=== PATIENT | male | born 1955 | race Caucasian/White ===

== ENCOUNTER 2017-09-16 06:49 | Inpatient (IN) | payer OTHER ==
[2017-09-16] MEDS ORDERED: fentaNYL 100 MCG/2 ML INJ IT ONE (07:04)
[2017-09-16] MEDS ORDERED: morphINE PF 5 MG/10 ML INJ IT ONE (07:04)
[2017-09-16] MEDS ORDERED: ceFAZolin 2 GM/SWFI 2 GM/20 ML SYR IVP ONE (07:04)
[2017-09-16] MEDS ORDERED: LR 1,000 ML IV ONE (07:05)
[2017-09-16] MEDS ORDERED: LIDOCAINE 1% 2 ML INJ ID PRN (07:24)
[2017-09-16 08:01] LABS: ANION GAP 12 mEq/L (8-16); CALCIUM 9.4 mg/dL (8.5-10.4); CARBON DIOXIDE 23 mEq/l (22-31); CHLORIDE 109 mEq/L (97-110); GLOMERULAR FILTRATION RATE > 60; GLUCOSE 102 mg/dL (70-100); POTASSIUM 4.5 mEq/L (3.5-5.2); SODIUM 144 mEq/L (134-144)
[2017-09-16] MEDS ORDERED: HYDROCODONE/APAP 5/325 TAB PO PRN ×2 (08:58→13:36)
[2017-09-16] MEDS ORDERED: ALBUTEROL 3 ML DEYVIAL IH PRN (08:58)
[2017-09-16] MEDS ORDERED: NALOXONE HCL 0.4 MG/ML INJ IVP PRN ×2 (08:58→13:36)
[2017-09-16] MEDS ORDERED: ONDANSETRON 4 MG/2 ML VIAL IVP PRN ×2 (08:58→13:36)
[2017-09-16] MEDS ORDERED: DEXAMETHASONE 4 MG/ML VIAL IVP PRN (08:58)
[2017-09-16] MEDS ORDERED: epHEDrine SULFATE 10 MG/ML SYR IVP PRN (08:58)
[2017-09-16] MEDS ORDERED: LR 500 ML IV PRN (08:58)
[2017-09-16] MEDS ORDERED: PROMETHAZINE HCL 25 MG/ML INJ IVP PRN (08:58)
[2017-09-16] MEDS ORDERED: ACETAMINOPHEN 500 MG TAB PO PRN (08:58)
[2017-09-16] MEDS ORDERED: SCOPOLAMINE HYDROBROMIDE 1 MG/3 DAYS PATCH TD SCH (09:00)
--- NOTE | 2017-09-16 09:00 | PDANEPAE ---
ANE History of Present Illness TLIF ANE Past Medical History - Cardiovascular History Hx Hypertension: No Hx Arrhythmias: No Hx Chest Pain: No Hx Coronary Artery / Peripheral Vascular Disease: No Hx CHF / Valvular Disease: No Hx Palpitations: No - Pulmonary History Hx COPD: No Hx Asthma/Reactive Airway Disease: No Hx Recent Upper Respiratory Infection: No Hx Oxygen in Use at Home: No Hx Sleep Apnea: No Sleep Apnea Screening Result - Last Documented: Negative - Neurologic History Hx Cerebrovascular Accident: No Hx Seizures: No Hx Dementia: No - Endocrine History Hx Diabetes: No - Renal History Hx Renal Disorders: Yes Renal History Comment: OVER ACTIVE BLADDER/FREQUENCY POST RADICAL PROSTATECTOMY 02/17 - Liver History Hx Hepatic Disorders: No - Neurological & Psychiatric Hx Hx Neurological and Psychiatric Disorders: No - Cancer History Hx Cancer: Yes Cancer History Comment: PROSTATE - Congenital Disorder History Hx Congenital Disorders: No - GI History Hx Gastrointestinal Disorders: No - Other Health History Other Health History: DJD. STENOSIS - Chronic Pain History Chronic Pain: Yes (RT HIP,THIGH,RUSS FEET) - Surgical History Prior Surgeries: RADICAL PROSTATECTOMY 02/2017 IN [place]. RT SHLDR SCOPE. RT KNEE SCOPE. RUSS ELBOW REPAIR. LUMBAR FUSION X3. LAMINECTOMY ANE Review of Systems Review of Systems: - Exercise capacity METS (RN): 4 METS ANE Patient History - Allergies Allergies/Adverse Reactions: No Known Allergies Allergy (Verified 01/17/15 07:20) - Home Medications Home Medications: Atorvastatin Calcium [Lipitor 40 mg (RX)] 40 mg PO HS 07/12/12 [Last Taken 09/15 21:00] Oxybutynin Chloride Xl [Ditropan Xl 5mg (*)] 10 mg PO DAILY@08/03/17 [Last Taken 09/07/17] Sildenafil Citrate [Revatio 20 MG (*)] 20 mg PO DAILY@08/03/17 [Last Taken ] - NPO status NPO Since - Liquids (Date): 09/15/17 NPO Since - Liquids (Time): 23:30 NPO Since - Solids (Date): 09/15/17 NPO Since - Solids (Time): 19:30 - Smoking Hx Smoking Status: Never smoked ANE Labs/Vital Signs - Labs Result Diagrams: 09/16/17 07:34 - Vital Signs Blood Pressure: 126/72 Heart Rate: 55 Respiratory Rate: 16 O2 Sat (%): 98 Height: 182.88 cm Weight: 88.451 kg ANE Physical Exam - Airway Neck exam: FROM Mallampati Score: Class 2 - Pulmonary Pulmonary: clear to auscultation - Cardiovascular Cardiovascular: regular rate and rhythym - ASA Status ASA Status: II ANE Anesthesia Plan Anesthesia Plan: general endotracheal anesthesia
[2017-09-16] MEDS ORDERED: BUPIVACAINE 0.25% 30 ML SDV ONE ×2 (09:17→09:35)
[2017-09-16] MEDS ORDERED: PROPOFOL/EMULSION 500 MG/50 ML BOTTLE IV ONE ×5 (09:17→13:11)
[2017-09-16] MEDS ORDERED: morphINE PF 5 MG/10 ML INJ ONE (09:17)
[2017-09-16] MEDS ORDERED: CITRATE DEXTROSE SOLN 500 ML BAG ONE (09:17)
[2017-09-16] MEDS ORDERED: THROMBIN (BOVINE) 5,000 UNIT VIAL TP ONE (09:17)
[2017-09-16] MEDS ORDERED: BACITRACIN 50,000 UNITS/10 ML SYR IRR ONE (09:18)
[2017-09-16] MEDS ORDERED: REMIFENTANIL HCL 1 MG VIAL ONE ×3 (09:18)
[2017-09-16] MEDS ORDERED: SUCCINYLCHOLINE CHLORIDE*ANESTHESIA ONLY*200 MG/10 ML SYR IVP ONE (09:18)
[2017-09-16] MEDS ORDERED: DEXAMETHASONE 4 MG/ML VIAL ONE ×2 (09:29)
[2017-09-16] MEDS ORDERED: RANITIDINE 50 MG/2 ML VIAL ONE (09:29)
[2017-09-16] MEDS ORDERED: ONDANSETRON 4 MG/2 ML VIAL ONE (09:29)
[2017-09-16] MEDS ORDERED: METOCLOPRAMIDE 10 MG/2 ML VIAL ONE (09:30)
[2017-09-16] MEDS ORDERED: HYDROmorphONE/DILAUDID 2 MG/ML INJ ONE (10:48)
[2017-09-16] MEDS ORDERED: fentaNYL 100 MCG/2 ML INJ ONE (12:49)
[2017-09-16] MEDS ORDERED: ceFAZolin 1 GM VIAL ONE (13:07)
[2017-09-16] MEDS ORDERED: BISACODYL 10 MG SUPP PR PRN (13:36)
[2017-09-16] MEDS ORDERED: LACTULOSE 20 GM/30 ML UDCUP PO PRN (13:36)
[2017-09-16] MEDS ORDERED: MAGNESIUM HYDROXIDE 30 ML UDCUP PO PRN (13:36)
[2017-09-16] MEDS ORDERED: ONDANSETRON DISINTEGRATING 4 MG TAB PO PRN (13:36)
[2017-09-16] MEDS ORDERED: METHOCARBAMOL 750 MG TAB PO PRN (13:36)
[2017-09-16] MEDS ORDERED: morphINE PCA 30 MG/30 ML PCA IV PRN (13:36)
[2017-09-16] MEDS ORDERED: diphenhydrAMINE 25 MG CAP PO PRN (13:36)
[2017-09-16] MEDS ORDERED: oxyCODONE IR 5 MG TAB PO PRN (13:36)
--- NOTE | 2017-09-16 13:41 | SOAPPROG ---
SOAP Progress Note Assessment/Plan: Assessment: 62 yo M sp L4-S1 hardware removal, L3-L5 fusion with L3/4 TLIF Plan: stable to 3N PT/OT LSO brace when out of bed please call with neuro changes 09/16/17 13:40 Subjective: + back pain, no leg pain Objective: Vital Signs Temp Pulse Resp BP Pulse Ox 36.6 C 55 L 16 126/72 H 98 09/16/17 09:22 09/16/17 09:22 09/16/17 09:22 09/16/17 09:22 09/16/17 09:22 Laboratory Results 09/16/17 07:34 somnolent PERRL, no facial droop MONO x 4 + light touch ICD10 Worksheet Patient Problems: Problems Problem Status Onset Fusion of spine of lumbar region Acute - ICD10 Problem Qualifiers (1) Fusion of spine of lumbar region
[2017-09-16] MEDS ORDERED: NS W/ 20 KCl/L 1,000 ML IV SCH (13:45)
[2017-09-16] MEDS ORDERED: HYDROmorphONE/DILAUDID 1 MG/ML INJ ONE (13:51)
[2017-09-16] MEDS: HYDROmorphONE/DILAUDID 1 MG/ML INJ IVP PRN ×3 (13:52→14:18)
[2017-09-16] MEDS ORDERED: MEPERIDINE 25 MG/ML SYR ONE (14:03)
[2017-09-16] MEDS ORDERED: MEPERIDINE 25 MG/ML SYR IVP PRN (14:08)
--- NOTE | 2017-09-16 14:21 | POSTANESTH ---
Post Anesthetic Evaluation Cardiovascular Status: Normal, Stable Respiratory Status: Normal, Stable Level of Consciousness/Mental Status: Can Participate in Eval, Alert and Oriented Pain Control: Adequate, Prn Tx Ordered Nausea/Vomiting Control: Adequate, Prn Tx Ordered Complications Possibly Related to Anesthesia: None Noted
[2017-09-16] MEDS: ceFAZolin 2 GM/DEXTROSE 100 ML IV SCH (18:16)
[2017-09-16] MEDS: POLYETHYLENE GLYCOL 3350 17 GM PKT PO SCH ×2 (18:16→21:16)
[2017-09-16] MEDS ORDERED: ATORVASTATIN CALCIUM 40 MG TAB PO SCH (21:00)
[2017-09-16] MEDS ORDERED: morphINE SR 15 MG TAB PO SCH (21:00)
[2017-09-16] MEDS: FAMOTIDINE 20 MG TAB PO SCH (21:16)
[2017-09-16] MEDS: SENNOSIDES/DOCUSATE SODIUM TAB PO SCH (21:16)
[2017-09-16] MEDS: morphINE SR 30 MG TAB PO SCH (21:17)
--- NOTE | 2017-09-17 01:05 | GOP ---
[f rep st] OPERATIVE REPORT DATE OF OPERATION: 09/16/2017 SURGEON: Donta Ac MD ANESTHESIA: General endotracheal. PREOPERATIVE DIAGNOSIS: 1. Severe adjacent level degeneration and critical spinal stenosis at L3-4, status post prior L4-S1 decompression and stabilization with instrumentation. Intractable back pain. 2. Intractable right greater than left lower extremity radicular and neurogenic claudication symptom s. 3. Failed conservative care. POSTOPERATIVE DIAGNOSIS: 1. Severe adjacent level degeneration and critical spinal stenosis at L3-4, status post prior L4-S1 decompression and stabilization with instrumentation. Intractable back pain. 2. Intractable right greater than left lower extremity radicular and neurogenic claudication symptom s. 3. Failed conservative care. PROCEDURE PERFORMED: 1. Removal of posterior segmental (pedicle screw) fixation from L4-S1 with exploration of spinal fus ion at L5-S1 and re-instrumentation at L3 through L5 with posterior segmental (pedicle screw) fixatio n. 2. Right-sided L3-4 far lateral transpedicular decompression with redo right L4-5 posterior hemilami nectomy and medial facetectomy and foraminotomy. 3. L3-4 posterior/transforaminal lumbar interbody fusion with 2 structural PEEK interbody spacers, l ocal autograft and bone morphogenic protein. 4. Use of intraoperative microscopy, fluoroscopy and computer volumetric stereotactic navigation wit h intraoperative neurophysiologic testing. 5. Injection of intrathecal narcotic analgesics and subcutaneous and intramuscular local anesthesia for postoperative pain control. 6. FINDINGS: ESTIMATED BLOOD LOSS: 250 cc. DESCRIPTION OF PROCEDURE: After informed consent was obtained, the patient was taken to the operatin g room and placed in the prone position on the Tomi table. The lumbosacral area was prepped and d raped in a sterile fashion. After fluoroscopic localization of the correct levels, the subcutaneous and intramuscular tissues were infiltrated with local anesthesia. A midline linear incision was then created from approximately L3 through S1. This was carried down to the fascial layer, which was inc ised using monopolar electrocautery and carried in a subperiosteal plane along the spinous processes and lamina bilaterally at the L3 level. The L4-S1 levels had laminectomy defects and this required m eticulous dissection under high-power microscopy and very careful exposure of the prior instrumentati on that was carefully removed in standard fashion. Following this, the microscope was brought in and a right-sided far lateral transpedicular decompression was performed at the L3-4 level with complete unroofing of the facet joint and neuro foramen. A right-sided redo posterior hemilaminectomy and fo raminotomy and medial facetectomy was performed on the right at the L4-5 level in order to ensure steffi quate decompression. Following this, the wound was copiously irrigated with antibiotic irrigation. Meticulous hemostasis was achieved. The Omnistream neuronavigational system was then brought in and 3-D reconstructed images utilized in conjunction with the navigation to place screws at L3, L4, and L5 b ilaterally. The L5 screws were added because I felt 2 points of fixation would be good in this patie nt under the circumstances. Following this, rods were placed across the L3-4 level only under distra ction, during which time, a complete diskectomy was performed at the L3-4 level with preparation of t he endplates and placement of two 11 mm structural PEEK interbody spacers, local autograft and bone m orphogenic protein for an L3-4 posterior/transforaminal lumbar interbody fusion. The screw and rods were then removed, and longer rods placed from L3 to L5 with maximal lordosis in order to prevent fla t back syndrome. A slight amount of compression was created across the L3-4 interspace in order to f acilitate bony union and to minimize the potential for posterior graft migration. Note that a couple of the screws stimulated very low with the intraoperative neurophysiologic testing and I tested the monitoring thresholds on the lamina, and these were also extremely low in multiple locations and I am not exactly sure why he was getting such low signals. But using biplanar fluoroscopy, I was able to verify good position of the screws and interbody spacers and had locked everything in place. Follow ing this, the wound was copiously irrigated with antibiotic irrigation. Meticulous hemostasis was ac hieved. 200 mcg of Duramorph along with 50 mcg of fentanyl were injected intrathecally for postopera tive pain control. The remaining lamina and facet joints were extensively decorticated, and the resi dual local autograft along with bone morphogenic protein and morselized allograft was placed out late rally for post posterolateral fusion from L3-L5. A drain was placed. The subcutaneous and intramusc ular tissues were re-infiltrated with local anesthesia. The wound was closed in a layered fashion us ing interrupted Vicryl sutures followed by Steri-Strips on the skin. COMPLICATIONS: None. INDICATIONS FOR PROCEDURE: The patient is a 62-year-old man who had a prior multilevel lumbar decomp ression stabilization at the L4 through S1 levels who had done extremely well for many years after th e surgery in 2006, but more recently has developed progressively worsening low back pain radiating es pecially into the right lower extremity and minimally into the left lower extremity. This is associa amada with neurogenic claudication and extremely poor quality of life. He presents now for removal of the old instrumentation and exploration of spinal fusion and extension of the decompression and fusio n up to L3-4. DISPOSITION: The patient was extubated and transferred to the recovery room in stable condition jacoby alfaro. /[id number]/MODL
[2017-09-17] MEDS: ceFAZolin 2 GM/DEXTROSE 100 ML IV SCH (03:33)
[2017-09-17 04:51] LABS: % IMMATURE GRANULYOCYTES 0.4 % (0.0-1.1); ABSOLUTE IMMATURE GRANULOCYTES 0.05 10^3/uL (0.00-0.10); ADD DIFF? NO; ADD MORPH? NO; ADD SCAN? NO; ATYPICAL LYMPHOCYTE FLAG 0 (0-99); FRAGMENT RBC FLAG 0 (0-99); HEMATOCRIT 36.4 % (40.0-51.0); HEMOGLOBIN 12.4 g/dL (13.7-17.5); LEFT SHIFT FLG 0 (0-99); LIPEMIA HEMOLYSIS FLAG 90 (0-99); MEAN CELL HEMOGLOBIN CONCENTR. 34.1 g/dL (32.4-36.7); MEAN PLATELET VOLUME 9.6 fL (8.7-11.7); PLATELET CLUMPS FLAG 0 (0-99); PLATELET COUNT 213 10^3/uL (150-400); RED CELL DISTRIBUTION WIDTH 13.5 % (11.5-15.2)
[2017-09-17 04:57] LABS: ANION GAP 9 mEq/L (8-16); CARBON DIOXIDE 26 mEq/l (22-31); CHLORIDE 103 mEq/L (97-110); GLOMERULAR FILTRATION RATE > 60; GLUCOSE 111 mg/dL (70-100); POTASSIUM 4.4 mEq/L (3.5-5.2); SODIUM 138 mEq/L (134-144)
[2017-09-17 07:14] VITALS: BP 97/60; PULSE 55; RESP 17; TEMP 98.2; O2SAT 98
--- NOTE | 2017-09-17 07:53 | SOAPPROG ---
SOAP Progress Note Assessment/Plan: Assessment: 62 yo M pod #1 L4-S1 hardware removal, L3-L5 fusion with L3/4 TLIF Plan: stable and doing well overall :) scd/amada/lovenox for dvt prophylaxis PT/OT LSO brace when out of bed x-rays today may be able to dc home today please call with neuro changes 09/16/17 13:40 09/17/17 07:52 Subjective: + back pain, leg pain better, no weakness. Objective: Vital Signs Temp Pulse Resp BP Pulse Ox 36.8 C 55 L 17 97/60 L 98 09/17/17 07:14 09/17/17 07:14 09/17/17 07:14 09/17/17 07:14 09/17/17 07:14 Laboratory Results 09/17/17 04:38 09/17/17 04:38 09/16/17 09/17/17 09/18/17 05:59 05:59 05:59 Intake Total 1600 Output Total 1765 Balance -165 AAOX4, +FC PERRL, EOMI, no facial droop 5/5 + light touch C/D/I ICD10 Worksheet Patient Problems: Problems Problem Status Onset Fusion of spine of lumbar region Acute - ICD10 Problem Qualifiers (1) Fusion of spine of lumbar region
[2017-09-17] MEDS ORDERED: ENOXAPARIN 40 MG/0.4 ML SYR SC SCH (09:00)
[2017-09-17] MEDS: SENNOSIDES/DOCUSATE SODIUM TAB PO SCH (09:23)
[2017-09-17] MEDS: morphINE SR 30 MG TAB PO SCH ×3 (09:25→09:35)
[2017-09-17] MEDS: POLYETHYLENE GLYCOL 3350 17 GM PKT PO SCH (09:25)
[2017-09-17] MEDS: FAMOTIDINE 20 MG TAB PO SCH (09:25)
[2017-09-17] MEDS ORDERED: OXYBUTYNIN 5 MG EXT REL TAB PO SCH (12:00)
--- NOTE | 2017-09-17 13:48 | ASDISCHSUM ---
Discharge Information Plan Status:Home with No Needs Medically Cleared to Leave:09/16/2017 Discharge Date:09/16/2017 CM D/C Disposition:Home, Routine, Self-Care ADT D/C Disposition:Home, Routine, Self-Care Projected Discharge Date:09/16/2017 Transportation at D/C:Family Discharge Delay Reason: Follow-Up Date:09/16/2017 Discharge Slot: Final Diagnosis: Placement Information Patient Contact Information Contact Name:KALLI Relationship: Address:[address] [place] [address] City:[place] [facility] Phone: State/Zip Code:[place] [address] Email: Financial Information Financial Class:[email or web address] Primary Plan Desc:[employer] PPO AND EPO Primary Plan Number:[id number] Secondary Plan Desc: Secondary Plan Number: Assessment Information [facility] CM Progress Note CM Note CM Note Notes: Pt s/p L4-S1 hardware removal, L3-L5 fusion, L3-4 TLIF. PT cleared. Pt is discharging home today with no CM needs. Date Signed: 09/17/2017 01:47 PM Electronically Signed By:SERGE Hurtado Intervention Information Intervention Type:*Incorrect Registration Date of Service:09/16/2017 02:30 PM Patient Type:Inpatient Staff Member:VALE Cook Susan Hours: Discipline: Severity: Comment:
[2017-09-17] MEDS: SILDENAFIL CITRATE 20 MG TAB PO SCH ×2 (14:05→14:08)
[2017-09-19] MEDS ORDERED: PATCH REMOVAL 1 EA PATCH TD SCH (08:59)
== END 2017-09-17 14:16 | disposition home or self-care (01) | DRG 455 ==
LOC: F3N 06:49 → OBSVTOIN 13:40 → F3N 15:01
PROVIDERS: ADMIT Neurological Surgery; ATTEND Neurological Surgery
PROC: 00NY0ZZ Release Lumbar Spinal Cord, Open Approach (ICD-10-PCS; principal; 2017-09-16 08:30)
PROC: 0SG00AJ Fusion of Lumbar Vertebral Joint with Interbody Fusion Device, Posterior Approach, Anterior Column, Open Approach (ICD-10-PCS; principal; 2017-09-16 08:30)
PROC: 0QP004Z Removal of Internal Fixation Device from Lumbar Vertebra, Open Approach (ICD-10-PCS; principal; 2017-09-16 08:30)
PROC: 01NB0ZZ Release Lumbar Nerve, Open Approach (ICD-10-PCS; principal; 2017-09-16 08:30)
PROC: 4A1004G Monitoring of Central Nervous Electrical Activity, Intraoperative, Open Approach (ICD-10-PCS; principal; 2017-09-16 08:30)
PROC: 0SG1071 Fusion of 2 or more Lumbar Vertebral Joints with Autologous Tissue Substitute, Posterior Approach, Posterior Column, Open Approach (ICD-10-PCS; principal; 2017-09-16 08:30)
PROC: 0ST20ZZ Resection of Lumbar Vertebral Disc, Open Approach (ICD-10-PCS; principal; 2017-09-16 08:30)
PROC: 8E0WXBF Computer Assisted Procedure of Trunk Region, With Fluoroscopy (ICD-10-PCS; principal; 2017-09-16 08:30)
DX: M48.062 Spinal stenosis, lumbar region with neurogenic claudication (principal); M51.16 Intervertebral disc disorders with radiculopathy, lumbar region; Z98.1 Arthrodesis status; Z90.79 Acquired absence of other genital organ(s); N28.89 Other specified disorders of kidney and ureter
CPT/HCPCS: 97161-GP; 97166-GO; C1713; J0171; J0330; J0690; J1100; J1170; J1650; J2274; J2405; J2704; J2765; J2780; J3010; J7060